=== PATIENT | female | born 1975 | race Native Hawaiian/Other Pacific Islander ===

== ENCOUNTER 2021-06-27 06:28 | Emergency (ER) | payer BC ==
[~2021-06-27] VITALS: Ht 146 cm; Wt 81.6 kg
[2021-06-27 06:40] VITALS: BP 137/59
[2021-06-27] MEDS ORDERED: PRD20T PO (07:09)
--- NOTE | 2021-06-27 07:10 | ED Upper Extremity ---
General Chief Complaint: Upper Extremity Stated Complaint: LEFT HAND NUMB WHEN AWAKENS Nursing Triage Note: intermittant left wrist/hand numbness x1 month. Source: patient Exam Limitations: no limitations History of Present Illness Date Seen by Provider: Jun 27, 2021 Time Seen by Provider: 06:45 Initial Comments Patient presents to the ER by private conveyance from home with chief complaint that she wakes up in the morning and after steady strenuous tasks such as pushing a broom with her left hand she gets numbness on the palmar side and the 1st 3-1/2 digits. She says in the past she had to have a release of her medial nerve surgically but in the past few months it has returned. She does not have any numbness or burning going up to her elbow or shoulder. She says she went to the clinic and they did some images of her neck and those were okay. She is not having any other symptoms. Allergies and Home Medications Allergies Coded Allergies: No Known Drug Allergies (Unverified , 06/27/21) Patient Home Medication List Home Medication List Reviewed: Yes Prednisone (Prednisone) 20 Mg Tab, 40 MG PO DAILY Prescribed by: CHAD RICHARDSON on 06/27/21 0709 Review of Systems Constitutional: No chills, No diaphoresis EENTM: No ear discharge, No ear pain, No blurred vision Respiratory: No cough, No short of breath Cardiovascular: No chest pain, No edema, No palpitations Gastrointestinal: No abdominal pain, No nausea, No vomiting Genitourinary: No decreased output, No discharge, No dysuria Musculoskeletal: see HPI, joint pain All Other Systems Reviewed Negative Unless Noted: Yes Past [id number] Hx Patient Social History Tobacco Use?: No Substance use?: No Alcohol Use?: No Pt feels they are or have been: No Immunizations Up To Date First/Initial COVID19 Vaccinat: 04/05 Past Medical History Surgery/Hospitalization HX: denies Physical Exam Vital Signs Vital Signs - First Documented 06/27/21 06:40 Temp 36.2 Pulse 63 Resp 16 B/P (MAP) 137/59 (85) Pulse Ox 98 O2 Delivery Room Air Capillary Refill : Less Than 3 Seconds Height, Weight, BMI Height: '" Weight: lbs. oz. kg; 38.00 BMI Method: General Appearance: WD/WN, no apparent distress HEENT: PERRL/EOMI, pharynx normal Neck: non-tender, full range of motion, normal inspection Cardiovascular: normal peripheral pulses, regular rate, rhythm Respiratory: no respiratory distress, no accessory muscle use Elbow/Forearm: normal inspection, non-tender, no evidence of injury, normal ROM, Left (No tenderness to tapping over the ulnar gutter) Wrist: Yes normal inspection, Yes no evidence of injury, Yes normal ROM Hand: normal inspection, non-tender, no evidence of injury, normal ROM, Left Neurologic/Psychiatric: no motor/sensory deficits, normal mood/affect Progress/Results/Core Measures Results/Orders Vital Signs/I&O 06/27/21 06:40 Temp 36.2 Pulse 63 Resp 16 B/P (MAP) 137/59 (85) Pulse Ox 98 O2 Delivery Room Air Blood Pressure Mean: 85 Progress Progress Note : Time: 07:02 Progress Note Suspect medial nerve entrapment or other similar nerve compression of the medial nerve. Plan to give her a course of steroids, encourage NSAIDs and put her in a splint. Follow-up with hand surgeon. Departure Impression Primary Impression: Entrapment of left median nerve Disposition: 01 HOME, SELF-CARE Condition: Stable Departure-Patient Inst. Decision time for Depature: 07:06 Referrals: MEREDITH MONTIEL,LOCAL PHYSICIAN (PCP) Primary Care Physician Patient Instructions: Carpal Tunnel Exercises, Carpal Tunnel Syndrome (DC) Add. Discharge Instructions: Prednisone 2 tablets daily for 5 days to help reduce the inflammation and swelling in your wrist. Wear the splint to sleep as well as at work to help mobilize your left wrist and reduce the pain and numbness. If you not seeing some improvement in 2 to [address] MONTIEL and request follow-up. All discharge instructions reviewed with patient and/or family. Voiced understanding. Scripts Prednisone (Prednisone) 20 Mg Tab 40 MG PO DAILY for 5 Days, #10 TAB 0 Refills Prov: CHAD RICHARDSON 06/27/21 Work/School Note: Work Release Form Date Seen in the Emergency Department: Jun 27, 2021 Return to Work: Jun 28, 2021 Restrictions: Need Release from Doctor Other Restrictions Listed Below: Splint to left wrist until 07/28/2021. Restrictions: Avoid repetitive motions with left hand until 07/06/2021. Copy Copies To 1: MEREDITH MONTIEL TITUS J Jun 27, 2021 07:09
== END 2021-06-27 07:13 | disposition home or self-care (01) ==
LOC: ER 06:37
DX: G56.02 Carpal tunnel syndrome, left upper limb (principal)